=== PATIENT | female | born 1960 | race American Indian/Alaskan Native ===

== ENCOUNTER 2021-06-27 08:21 | Outpatient (CLI) | payer BC ==
--- NOTE | 2021-06-27 09:30 | XRay Report ---
LEFT KNEE 4 VIEW(S) INDICATION / CLINICAL INFORMATION: LEFT KNEE PAIN COMPARISON: None available. FINDINGS: BONES / JOINT(S): No acute fracture or subluxation. Moderate tricompartmental degenerative arthrosis SOFT TISSUES: No significant abnormality. ADDITIONAL FINDINGS: None. Signer Name: Vahe Alvarez MD Signed: 06/27/2021 9:26 AM Workstation Name: [id number]
== END 2021-06-27 08:22 | disposition home or self-care (01) ==
LOC: XRAY 08:21
PROVIDERS: ATTEND Internal Medicine
DX: M17.12 Unilateral primary osteoarthritis, left knee (principal)